=== PATIENT | male | born 1965 | race African-American/Black ===

== ENCOUNTER 2020-09-01 11:53 | Inpatient (IN) | payer OTHER ==
[~2020-09-01] VITALS: Ht 185.4 cm; Wt 98.2 kg
[2020-09-01] MEDS ORDERED: ONDANSETRON HCL 4MG/2ML INJ IV STA (12:30)
[2020-09-01] MEDS ORDERED: SODIUM CHLORIDE 0.9% 1,000 ML IV ONE ×2 (12:30→13:15)
[2020-09-01] MEDS ORDERED: FAMOTIDINE 20MG/2ML VIAL IV STA (12:30)
[2020-09-01] MEDS ORDERED: MORPHINE SULFATE 4 MG/ML CPJ (NOT FOR IM USE) IV ONE (12:30)
[2020-09-01 12:47] LABS: HEMATOCRIT. 47.1 % (42.0-52.0); HEMOGLOBIN. 15.5 g/dL (14.0-18.0); MEAN CORPUSCULAR HEMOGLOBIN 29.4 pg (28.0-32.0); MEAN CORPUSCULAR VOLUME 89.6 fL (80.0-94.0); MEAN PLATELET VOLUME 7.3 fl (7.4-10.4); PLATELET 444 x1000/uL (130-400); RED BLOOD CELL COUNT 5.26 mill/uL (4.7-6.1); RED CELL DISTRIBUTION WIDTH 15.1 % (11.6-14.6)
[2020-09-01 12:50] LABS: CHLORIDE 106 mEq/L (98-107)
[2020-09-01] MEDS ORDERED: HYDROMORPHONE HCL/PF 2MG/ML CPJ IV ONE (13:15)
[2020-09-01 13:19] LABS: PLATELET ESTIMATE SLIGHTLY INCREASED
[2020-09-01 13:33] LABS: PROTHROMBIN TIME 11.2 sec (9.6-11.0)
[2020-09-01] MEDS ORDERED: IOHEXOL-300 100 ML BOTTLE ONE (14:25)
[2020-09-01] MEDS: DEXT 5%/0.45% NACL 1000ML 1,000 ML IV SCH (17:47)
[2020-09-01] MEDS: AMLODIPINE 10MG TABLET PO SCH (17:47)
[2020-09-01] MEDS: MORPHINE SULFATE 2 MG/ML CPJ (NOT FOR IM USE) IV PRN (18:02)
[2020-09-01 18:17] VITALS: BP 165/99
[2020-09-01 20:00] VITALS: BP 160/107
[2020-09-01] MEDS: CLONIDINE 0.1MG TABLET PO PRN (20:06)
[2020-09-02] VITALS: BP 145/92
[2020-09-02] MEDS: MORPHINE SULFATE 2 MG/ML CPJ (NOT FOR IM USE) IV PRN ×3 (02:52→13:00)
[2020-09-02] MEDS: ONDANSETRON HCL 4MG/2ML INJ IV PRN (03:06)
[2020-09-02 04:00] VITALS: BP 140/85
[2020-09-02] MEDS: DEXT 5%/0.45% NACL 1000ML 1,000 ML IV SCH ×2 (06:44→23:38)
[2020-09-02 07:22] LABS: HEMATOCRIT. 45.5 % (42.0-52.0); HEMOGLOBIN. 14.9 g/dL (14.0-18.0); MEAN CORPUSCULAR HEMOGLOBIN 29.2 pg (28.0-32.0); MEAN CORPUSCULAR VOLUME 89.1 fL (80.0-94.0); MEAN PLATELET VOLUME 7.8 fl (7.4-10.4); PLATELET 370 x1000/uL (130-400); RED CELL DISTRIBUTION WIDTH 15.2 % (11.6-14.6)
[2020-09-02 07:48] LABS: CHLORIDE 105 mEq/L (98-107)
[2020-09-02 08:00] VITALS: BP 141/89
[2020-09-02] MEDS: AMLODIPINE 10MG TABLET PO SCH (09:03)
[2020-09-02 12:00] VITALS: BP 131/86
[2020-09-02 14:27] LABS: PLATELET ESTIMATE NORMAL
[2020-09-02 16:00] VITALS: BP 136/95
[2020-09-02] MEDS ORDERED: HYDROMORPHONE HCL/PF 2MG/ML CPJ IV PRN (18:15)
[2020-09-02] MEDS: HYDROMORPHONE HCL/PF 2MG/ML CPJ IV PRN (18:22)
[2020-09-02 20:00] VITALS: BP 143/93
[2020-09-03] VITALS (7 sets, daily range): BP systolic 117–135; BP diastolic 79–94
[2020-09-03] MEDS: ONDANSETRON HCL 4MG/2ML INJ IV PRN ×2 (05:06→16:09)
[2020-09-03] MEDS: HYDROMORPHONE HCL/PF 2MG/ML CPJ IV PRN ×4 (05:14→19:11)
[2020-09-03 08:01] LABS: CHLORIDE 103 mEq/L (98-107)
[2020-09-03] MEDS: AMLODIPINE 10MG TABLET PO SCH (09:06)
[2020-09-03] MEDS: DEXT 5%/0.45% NACL 1000ML 1,000 ML IV SCH ×2 (09:06→22:38)
[2020-09-03] MEDS: MAGNESIUM/ALUMINUM HYDROXIDE/SIMETHICONE 30ML UDC PO PRN ×2 (12:25→19:10)
[2020-09-04] VITALS: BP 126/82
[2020-09-04] MEDS: HYDROMORPHONE HCL/PF 2MG/ML CPJ IV PRN ×5 (02:25→21:26)
[2020-09-04 04:00] VITALS: BP 135/82
[2020-09-04 07:01] LABS: BASOPHILS % 0.1 % (0.0-2.0); HEMATOCRIT. 43.2 % (42.0-52.0); HEMOGLOBIN. 13.9 g/dL (14.0-18.0); LYMPHOCYTES % 7.8 % (20.0-50.0); MEAN CORPUSCULAR HEMOGLOBIN 28.9 pg (28.0-32.0); MEAN CORPUSCULAR VOLUME 89.8 fL (80.0-94.0); MEAN PLATELET VOLUME 8.2 fl (7.4-10.4); MONOCYTES % 8.5 % (2.0-8.0); NEUTROPHILS % 83.6 % (40.0-76.0); PLATELET 285 x1000/uL (130-400); RED BLOOD CELL COUNT 4.81 mill/uL (4.7-6.1)
[2020-09-04 07:30] LABS: CHLORIDE 102 mEq/L (98-107)
[2020-09-04] MEDS: AMLODIPINE 10MG TABLET PO SCH (07:36)
[2020-09-04] MEDS: ONDANSETRON HCL 4MG/2ML INJ IV PRN ×2 (07:40→16:01)
[2020-09-04 08:00] VITALS: BP 107/76
[2020-09-04] MEDS: SODIUM CHLORIDE 0.9% 1,000 ML IV SCH ×2 (11:36→21:24)
[2020-09-04 12:00] VITALS: BP_SYST 107; BP_SYST 137; BP_DIAS 76; BP_DIAS 84
[2020-09-04 16:30] VITALS: BP 141/83
[2020-09-04] MEDS: ACETAMINOPHEN 325MG TABLET PO PRN (16:40)
[2020-09-04 20:25] VITALS: BP 130/90
[2020-09-05 00:37] VITALS: BP 116/81
[2020-09-05 04:00] VITALS: BP 162/93
[2020-09-05] MEDS: CLONIDINE 0.1MG TABLET PO PRN (06:30)
[2020-09-05] MEDS: SODIUM CHLORIDE 0.9% 1,000 ML IV SCH (06:31)
[2020-09-05] MEDS: MAGNESIUM/ALUMINUM HYDROXIDE/SIMETHICONE 30ML UDC PO PRN ×2 (06:35→07:32)
[2020-09-05] MEDS: HYDROMORPHONE HCL/PF 2MG/ML CPJ IV PRN (06:35)
[2020-09-05 06:39] LABS: HEMATOCRIT. 40.9 % (42.0-52.0); HEMOGLOBIN. 13.3 g/dL (14.0-18.0); MEAN CORPUSCULAR HEMOGLOBIN 29.1 pg (28.0-32.0); MEAN CORPUSCULAR VOLUME 89.7 fL (80.0-94.0); MEAN PLATELET VOLUME 8.5 fl (7.4-10.4); PLATELET 347 x1000/uL (130-400); RED BLOOD CELL COUNT 4.56 mill/uL (4.7-6.1); RED CELL DISTRIBUTION WIDTH 14.7 % (11.6-14.6)
[2020-09-05] MEDS: ACETAMINOPHEN 325MG TABLET PO PRN (07:32)
[2020-09-05] MEDS: AMLODIPINE 10MG TABLET PO SCH (07:32)
[2020-09-05 07:41] LABS: CHLORIDE 100 mEq/L (98-107)
[2020-09-05 08:07] VITALS: BP 117/82
[2020-09-05 12:08] VITALS: BP 134/87
[2020-09-05 12:50] VITALS: BP 134/87
[2020-09-05 13:06] LABS: PLATELET ESTIMATE NORMAL
== END 2020-09-05 16:45 | disposition home or self-care (01) | DRG 439 ==
LOC: ER 12:02 → 6EST 15:22 → ENRESERV 15:59 → 6EST 18:00 → 6WST 09-03 20:59
PROVIDERS: ADMIT Hospitalist; ATTEND Hospitalist
DX: K85.90 Acute pancreatitis without necrosis or infection, unspecified (principal); N17.9 Acute kidney failure, unspecified; E87.2 Acidosis; I10 Essential (primary) hypertension; F19.10 Other psychoactive substance abuse, uncomplicated; F10.10 Alcohol abuse, uncomplicated; K74.60 Unspecified cirrhosis of liver; Z79.899 Other long term (current) drug therapy
CPT/HCPCS: 36415; 74177; 76705; 80053; 83605; 83735; 84478; 85025; 93005; 99285; J1170; J2270; J2405; J3490; J7030; Q9967